=== PATIENT | female | born 1990 | race Caucasian/White ===

== ENCOUNTER 2019-10-05 17:25 | Emergency (ER) | payer OTHER ==
[~2019-10-05] VITALS: Ht 147.3 cm; Wt 104.3 kg
[2019-10-05] MEDS ORDERED: COZAAR 25 MG TA25 M2 PO (17:43)
[2019-10-05] MEDS ORDERED: COZAAR100 MG PO (19:52)
[2019-10-05] MEDS ORDERED: NORCO 5-325 TA1 EAC1 PO (19:52)
[2019-10-05 20:25] VITALS: BP 156/107
== END 2019-10-05 20:26 | disposition home or self-care (01) ==
LOC: M.ERS 17:25
DX: S83.8X1A Sprain of other specified parts of right knee, initial encounter (principal); I10 Essential (primary) hypertension; F17.210 Nicotine dependence, cigarettes, uncomplicated; Z88.8 Allergy status to other drugs, medicaments and biological substances; W18.39XA Other fall on same level, initial encounter; Y93.89 Activity, other specified; Y92.89 Other specified places as the place of occurrence of the external cause; Y99.8 Other external cause status